=== PATIENT | female | born 1975 | race Caucasian/White ===

== ENCOUNTER 2016-12-22 14:30 | Inpatient (IN) | payer MEDICAID ==
[~2016-12-22] VITALS: Ht 157.5 cm; Wt 63.1 kg
--- NOTE | ~2016-12-22 | HP ---
PATIENT'S NAME: KAROLYN RODRIGUEZ [facility] AGE: 41 Y [address] ROOM: [address] [place], [place] [address] LOCATION: [facility] ADMIT DATE: 12/22/2016 History & Physical DISCHARGE DATE: FAMILY PHYSICIAN: PHYSICIAN, UNKNOWN ATTENDING PHYSICIAN: VIOLA WEAVER DATE OF SERVICE: HISTORY OF PRESENT ILLNESS: The patient is a 41-year-old G3, P2-0-0-2, who was transferred here from [place] secondary to the patient's concern for pre-term labor versus a possible infectious etiology. The patient's has been complicated by history of tobacco use and anemia, as well as a history of a LEEP and advanced maternal age. The patient states that she went to work this a.m., and then started complaining of nausea and vomiting and diarrhea. When she was seen in the office, she was complaining of some left lower quadrant pain, and was found to have tenderness on exam. Labs were obtained, and she was also noted to have a significantly elevated white count of 26. She was sent to the hospital for observation. While at the hospital, the patient was noted to have tachycardia in the 170s, with again elevation of her white blood cell counts. UA was unremarkable. Blood cultures were obtained. The patient did have a one-time fever of 100.4, but was otherwise afebrile. She was, however, receiving Tylenol for pain. The patient changed cervix from closed to fingertip, and was becoming further effaced. Discussion was held about transferring the patient here due to her premature status. Upon arrival here, the patient was reporting that she has continued to have contractions, though she feels are occurring closer together approximately every 2 minutes, and are becoming more painful. She does also note that her membranes ruptured, and the ambulance ride over from [place] was with pink-tinged fluid. She is still feeling positive movement. PAST MEDICAL HISTORY: Significant for tobacco use. Otherwise, denies any other issues. PAST SURGICAL HISTORY: Significant for a LEEP in 2002. Most recent Pap smear during this was normal. She has also had a breast lumpectomy of her left breast. OBSTETRICS/GYNECOLOGICAL HISTORY: Significant for two previous vaginal deliveries at term in [place]. She denies any complications with this . As stated above, this has been complicated by advanced maternal age, anemia, and tobacco use. She is 32 weeks and 5 days by her stated ROBERT of February 11, and she established care at approximately eight weeks in [place]. She has had normal ultrasounds during this consistent with those dates. PATIENT'S NAME: KAROLYN RODRIGUEZ [facility] AGE: 41 Y [address] ROOM: [place] [address] LOCATION: [facility] ADMIT DATE: 12/22/2016 History & Physical DISCHARGE DATE: FAMILY PHYSICIAN: PHYSICIAN, UNKNOWN ATTENDING PHYSICIAN: VIOLA WEAVER SOCIAL HISTORY: The patient endorses tobacco use, but denies any alcohol or drug use. She does have a history of narcotic abuse. She has not had a UDS during this , though reports she has been clean for some time. She is employed outside the home. She is currently from her . MEDICATIONS: She takes 1. vitamins. 2. Colace. 3. Prilosec. 4. Calcium and vitamin D. 5. Ferrous sulfate. ALLERGIES: SHE DOES NOT HAVE ANY KNOWN MEDICAL ALLERGIES. REVIEW OF SYSTEMS: Negative except as noted above. PHYSICAL EXAMINATION: VITAL SIGNS: Reviewed. The patient is afebrile and has a pulse of 92 and is normotensive. heart tones are approximately 165 baseline with moderate variability, and positive accels with variable decelerations. [place], the patient was amy approximately every two minutes. GENERAL: She appears awake and alert. She does appear to be uncomfortable with contractions. HEART: Regular rate and rhythm. LUNGS: Clear to auscultation bilaterally. ABDOMEN: Soft and gravid. She does have some tenderness worse over the left lower quadrant. She denies any fundal tenderness on exam. On speculum exam, she is grossly ruptured with clear fluid. On digital exam, cervix is fingertip, about 75% effaced, and -4. DIAGNOSTIC STUDIES: A bedside ultrasound was performed. Fetus was confirmed to be in a cephalic presentation, with very little amniotic fluid. EFW was obtained, which was 3 pounds 9 ounces, and measuring approximately 31 weeks, which was again consistent with dates. ASSESSMENT AND PLAN: This is a 41-year-old G3, P2-0-0-2 at 32 weeks and 5 days with premature rupture of membranes and concern for possible chorioamnionitis. 1. Intrauterine . status at this time was noted to have PATIENT'S NAME: KAROLYN RODRIGUEZ [facility] AGE: 41 Y [address] ROOM: [address] [address] LOCATION: [facility] ADMIT DATE: 12/22/2016 History & Physical DISCHARGE DATE: FAMILY PHYSICIAN: PHYSICIAN, UNKNOWN ATTENDING PHYSICIAN: VIOLA WEAVER consistent tachycardia, but does still have moderate variability and has occasional variable decelerations, but does not have any late or other concerning decelerations at this time. 2. premature rupture of membranes. Discussed with the patient that we will start latency antibiotics of ampicillin and a dose of azithromycin. I do not feel comfortable at this time starting tocolysis as I am concerned that she does have a possible infection due to the significant elevation in her white count and the persistent tachycardia. 3. Concern for possible chorioamnionitis as stated above. We will start antibiotics at this time. We will also obtain a procalcitonin and a repeat CBC and CMP, and also keep the patient on Tylenol 1 g q.6 hours for discomfort. Discussed with the patient that should she develop another fever or she should change her cervix, and at that time, we will talk about continued labor management and pain control, with possible augmentation of labor if further concerns for infection result. VIOLA WEAVER MD GT/talib /[id number] D: [id number] T: [id number] HISTORY & PHYSICAL
--- NOTE | ~2016-12-22 | DS ---
PATIENT'S NAME: KAROLYN RODRIGUEZ [facility] AGE: 41 Y [address] ROOM: [address] [address] LOCATION: [facility] ADMIT DATE: 12/22/2016 Discharge Summary DISCHARGE DATE: 12/25/2016 FAMILY PHYSICIAN: Physician, Unknown ATTENDING PHYSICIAN: Sari Cha ADMISSION DIAGNOSES: 1. Intrauterine at 32 weeks and 4 days. 2. Concern for chorioamnionitis. 3. Advanced maternal age. 4. Tobacco abuse. 5. Anemia. DISCHARGE DIAGNOSES: 1. Intrauterine at 32 weeks and 4 days. 2. Chorioamnionitis. 3. Repetitive late decelerations, unresponsive to resuscitative efforts. 4. Advanced maternal age. 5. Tobacco abuse. 6. Anemia. PROCEDURES PERFORMED DURING THIS HOSPITALIZATION: Primary low transverse section. COMPLICATIONS: The patient was transferred to the ICU following her procedure, secondary to hypotension, requiring pressors during her case. HOSPITAL COURSE: The patient is a 41-year-old, G3, P2-0-0-2, who was transferred from [place] on December 22, 2016 for left lower quadrant pain and elevated white count with concern for a possible chorioamnionitis versus labor. Upon arrival here, the patient was amy approximately every 2 to 3 minutes and was uncomfortable. Cervix is not favorable at that time. CBC at the outside facility had shown a white count in the low 20s, repeat CBC here showed a white count of 45, and she did have abdominal tenderness on exam. She was recommended to undergo induction, secondary to chorioamnionitis. The patient was afebrile. She was started on Pitocin and received an epidural. Shortly after epidural placement, she was noted to have repetitive late decelerations down to the 70s with the baseline of 160-170 for heart rate. These decelerations did not respond to resuscitative efforts and she was recommended to undergo section. The patient had also been given a dose of azithromycin and ampicillin for treatment of her chorioamnionitis prior to the procedure. Procedure in terms of delivery was uncomplicated and she had a viable female infant with score of 7 and 8 and weight of 3 pounds, 15 ounces. was transferred to NICU, secondary to prematurity. During the case, the patient did have a normal estimated PATIENT'S NAME: KAROLYN RODRIGUEZ [facility] AGE: 41 Y [address] ROOM: [address] [place], [place] [address] LOCATION: [facility] ADMIT DATE: 12/22/2016 Discharge Summary DISCHARGE DATE: 12/25/2016 FAMILY PHYSICIAN: Physician, Unknown ATTENDING PHYSICIAN: Sari Cha blood loss, but was requiring pressors for blood pressure support and was recommended to be transferred to the ICU. The patient did well overnight and did not require any further pressors and was continued on ampicillin, gentamicin, and clindamycin for antibiotic coverage. Repeat CBC the next a.m. showed a hemoglobin of 7.1, down from 9, which the patient was tolerating well and a white count of 42, slightly decreased from her previous of 46. She was transferred out of the ICU on December 23. On December 24, the patient continued to do well, white count was repeated and was 23, and hemoglobin was stable at 7.3. The patient was ambulating, tolerating p.o. intake, but had not passed flatus. She was given a suppository to help with this. She was complaining of some lower extremity edema, but was otherwise without complaint. The patient had also been started on Lovenox on the evening of postop day #1 for DVT prophylaxis due to her risk factors. The patient was given a Dulcolax suppository on postop day #2 and started passing flatus after that. On the morning of postop day #3, the patient was again meeting most postoperative goals, but was continuing to complain of edema in her legs up to her labia. She was given a dose of p.o. Lasix x1. Repeat CBC was obtained. She was felt to be stable to discharge to home. Of note, the patient does have a history of narcotic abuse and declines any narcotic pain medications to be discharged with and preferred to be on Tylenol for pain relief. I will discuss this further with Dr. Ambrose so that he is aware of her current situation. DISCHARGE PRECAUTIONS: The patient was instructed to call with fever greater than 100.4, uncontrolled pain, redness or drainage from her incision, and any heavy vaginal bleeding greater than 2 pads per hour. She is to follow up with me in 2 weeks for an incision check and with Dr. Ambrose in 6 weeks for her exam. DISCHARGE MEDICATIONS: Please see medication list. MD CATE MOHAN/talib /[id number] d: 12/26/16 0640 t: 12/31/16 1121, DISCHARGE SUMMARY
--- NOTE | ~2016-12-22 | OR ---
PATIENT'S NAME: KAROLYN RODRIGUEZ [facility] AGE: 41 Y [address] ROOM: [place] [address] LOCATION: [facility] ADMIT DATE: 12/22/2016 OR/Procedure Report DISCHARGE DATE: FAMILY PHYSICIAN: PHYSICIAN, UNKNOWN ATTENDING PHYSICIAN: SARI CHA SURGEON: Sari Cha MD NAPHTHALENE OPERATOR: Adore Adler MD. Dr. Adler's assistance was required for adequate visualization of the tissues as well as safe delivery of the fetus. DATE OF PROCEDURE: 12/22/2016 PROCEDURE PERFORMED: Primary low transverse section. PREOPERATIVE DIAGNOSES: 1. Intrauterine at 32 weeks, 4 days. 2. Chorioamnionitis. 3. Repetitive late decelerations, unresponsive to resuscitative efforts. 4. Advanced maternal age. 5. Tobacco use. 6. Anemia. POSTOPERATIVE DIAGNOSES: 1. Intrauterine at 32 weeks, 4 days. 2. Chorioamnionitis. 3. Repetitive late decelerations, unresponsive to resuscitative efforts. 4. Advanced maternal age. 5. Tobacco use. 6. Anemia. ESTIMATED BLOOD LOSS: 800 mL Antibiotics: azithromycin 500 mg and ampicillin 2 g IV prior to procedure. ANESTHESIA: Anesthesia was with epidural. FINDINGS: Viable female infant, Apgars 7/8, weight 3 lb 15 oz. Intact placenta with 3-vessel cord. Purulent foul-smelling fluid and decidual reaction consistent with intraamniotic infection. COMPLICATIONS: The patient was transferred to the ICU after the procedure, secondary to hypotension requiring the use of pressors. SPECIMENS: Placenta, cord blood, and arterial cord pH. INDICATION FOR THE PROCEDURE: The patient is a 41-year-old, G3, P2-0-0-2, who was transferred from [place] on December 22, 2016, secondary to labor with PAT[facility] AGE: 41 Y [address] ROOM: [place] [address] LOCATION: [facility] ADMIT DATE: 12/22/2016 OR/Procedure Report DISCHARGE DATE: FAMILY PHYSICIAN: PHYSICIAN, UNKNOWN ATTENDING PHYSICIAN: SARI CHA concern for chorioamnionitis. Please refer to my previously dictated H and P for admission details. Repeat CBC was obtained after the patient arrived here and white blood cell count was significantly elevated at 45. Due to concern for chorioamnionitis, she was recommended to undergo induction of labor and Pitocin was started. Cervix was fingertip dilated at that time. She then progressed to 1-2 cm dilated and desired her epidural. Vital signs were stable. heart tones remained in the 160s to 170s with moderate variability and occasional variable decelerations. The patient did receive her epidural and then shortly thereafter was noted to have repetitive late decelerations down to the 70s, which did not respond to resuscitative efforts. She was recommended to undergo section. She is aware of risks of procedure to include, but not limited to, risk of bleeding, risk of infection, risks associated with anesthesia, risk of injury to bowel and bladder, and risk of thromboembolism. She is aware of the risks and desired to proceed. DESCRIPTION OF PROCEDURE: The patient was taken back to the operating room and a Last catheter was placed. Epidural anesthesia had previously been established and was dosed up appropriately. She was placed in dorsal supine position with leftward tilt of the hips. She was prepped and draped in the usual sterile fashion. Due to the emergent nature of the case, a needle, sponge, instrument count was not performed prior to the procedure. An incision was made in the skin and carried down to the underlying fascia. Fascia was bluntly from the underlying rectus muscles. Blunt entry was made into the peritoneum and spread. Bladder blade was placed. A low- transverse hysterotomy incision was made and spread in a cephalocaudal direction. Upon entry into the uterus, a foul smell was appreciated. Surgeon's hand was placed into the uterus and with assistance of gentle fundal pressure, the head was delivered followed by the remainder of the body. No nuchal cord was noted. was noted to be a viable female. Cord was clamped and cut and the was handed off to the awaiting utility assembler and NICU team. Arterial cord pH and cord blood were obtained. Cord pH was 7.20 with a base excess of 11. IV Pitocin was started per protocol. Gentle traction was placed on the umbilical cord and the uterus was massaged until the placenta was released. The placenta was sent for pathology. Uterus was exteriorized and cleared of all remaining clots and debris. There was significant decidual reaction noted within the uterus. Uterus, tubes, and ovaries otherwise did appear normal. Left lower quadrant was examined as the patient was complaining of some pain in that area earlier in the day and there was no bowel abnormalities able to be appreciated. Uterus was then closed in a running locked fashion using 0 Vicryl. A second imbricating layer was placed in a running nonlocked fashion. The uterus was then replaced into the abdomen. Incision was inspected and an area of sinusoidal bleeding was appreciated on the left-side of the incision. Uterus was then exteriorized again and this area required multiple [id number] sutures, with 0 Vicryl. This area PATIENT'S NAME: KAROLYN RODRIGUEZ [facility] AGE: 41 Y [address] ROOM: [place] [address] LOCATION: [facility] ADMIT DATE: 12/22/2016 OR/Procedure Report DISCHARGE DATE: FAMILY PHYSICIAN: PHYSICIAN, UNKNOWN ATTENDING PHYSICIAN: SARI CHA was felt to be well medial to the uterine artery. Once bleeding was under control, the uterus was then replaced into the abdomen again and incision inspected and was hemostatic. The bilateral pericolic gutters were cleared of all clots. The fascia was then closed in a running nonlocked fashion using 0 Vicryl. Subcutaneous tissue was irrigated and any areas of bleeding cauterized with the Bovie. Skin was then closed with 4-0 Vicryl on a Andi needle. Mastisol and Steri-Strips were applied to the incision. An abdominal and pelvic x-ray was performed with no retained instruments or sponges appreciated. The patient at that time had required pressors to maintain her blood pressure and it was recommended that she be monitored within the ICU overnight. Plan was for the patient to continue on triple antibiotics with ampicillin, gentamicin, and clindamycin in concordance with further care from the ICU physician. MD CATE MOHAN/talib /[id number] d: 12/23/16311 t: 12/23/16911, OPERATIVE SUMMARY
[~2016-12-22 14:30] MED LIST changes: -COLACE100 MG PO; -FEOSOL325 MG PO; -FLONASE 50 MCG/16 GM NOSE; -PRENATAL 1+1)(P1 TAB PO; -PRILOSEC20 MG PO; -TYLENOL EXTRA500 MG PO
[2016-12-22 17:50] LABS: BILIRUBIN URINE NEGATIVE (NEGATIVE); BLOOD URINE 250 /UL (NEGATIVE); COLOR URINE YELLOW (YELLOW); GLUCOSE URINE NEGATIVE (NEGATIVE); KETONE URINE 50 mg/dL (NEGATIVE); LEUKOCYTES URINE 100 /UL (NEGATIVE); NITRITE URINE NEGATIVE (NEGATIVE); PROTEIN URINE 15 mg/dL (NEGATIVE); UROBILINOGEN URINE NORMAL (NORMAL)
[2016-12-22 17:57] LABS: TURBIDITY URINE 1+ (CLEAR)
[2016-12-22 17:58] LABS: RBC URINE NEGATIVE #/HPF (NEGATIVE)
[2016-12-22 17:59] LABS: BACTERIA URINE FEW (NEGATIVE)
[2016-12-22 18:07] LABS: BARBITURATE NEGATIVE (NEGATIVE); COCAINE NEGATIVE (NEGATIVE); OPIATES NEGATIVE (NEGATIVE)
[2016-12-22 18:14] LABS: AMPHETAMINE NEGATIVE (NEGATIVE)
[2016-12-22 18:14] LABS: HEMATOCRIT 28.3 % (33.0-46.0); HEMOGLOBIN 9.7 g/dL (11.0-15.0); MCH 31.1 pg (27.0-34.0); MCHC 34.3 gm/dL (32.0-36.5); MCV 90.7 fl (83.0-98.0); MPV 10.8 fl (9.4-12.4); PLATELET COUNT 196 K/uL (150-450); RBC 3.12 M/uL (3.50-5.50); RDW-CV 13.2 % (11.9-14.6)
[2016-12-22 18:16] LABS: WBC 46.1 K/uL (4.0-11.0)
[2016-12-22 18:30] LABS: ALBUMIN 2.6 gm/dL (3.5-5.0); ALK PHOS 86 IU/L (33-138); ALT 13 IU/L (12-78); ANION GAP 17.3 (10.0-19.0); AST 13 IU/L (10-40); BLOOD UREA NITROGEN 5 mg/dL (6-24); CHLORIDE 110 mMol/L (96-110); CREATININE 0.5 mg/dL (0.5-1.1); ESTIMATED GFR (MDRD EQUATION) > 60; POTASSIUM 3.3 mMol/L (3.7-5.1); SODIUM 141 mMol/L (135-145); TOTAL BILIRUBIN 0.9 mg/dL (0.0-1.5); TOTAL PROTEIN 5.8 g/dL (6.0-8.4)
[2016-12-22 18:31] LABS: CO2 17 mMol/L (22-32)
[2016-12-22 18:56] LABS: ABSOLUTE NEUTROPHIL CT (ANC) 43.8 K/uL (1.8-7.8); BANDED NEUTROPHIL # 19.4 K/uL (0.0-0.1); BANDED NEUTROPHILS % 42 %; LYMPHOCYTE # 1.4 K/uL (0.8-4.0); LYMPHOCYTE % 3 %; MONOCYTE # 1.4 K/uL (0.0-1.0); SEGMENTED NEUTROPHIL # 24.4 K/uL (1.8-7.8); SEGMENTED NEUTROPHIL % 53 %
[2016-12-22] MEDS ORDERED: PRENATAL 1+1)(P1 TAB PO (19:09)
[2016-12-22] MEDS ORDERED: COLACE100 MG PO (19:11)
[2016-12-22] MEDS ORDERED: FEOSOL325 MG PO (19:11)
[2016-12-22] MEDS ORDERED: PRILOSEC20 MG PO (19:12)
[2016-12-22] MEDS ORDERED: FLONASE 50 MCG/16 GM NOSE (19:13)
[2016-12-22 21:03] LABS: PCO2 41 mmHg (35-45)
[2016-12-22 21:05] LABS: PO2 18 mmHg (80-90)
[2016-12-22 21:06] LABS: BICARBONATE 16.6 mmol/L (18.0-23.0)
--- NOTE | 2016-12-23 02:51 | NUR ---
Significant Event: Patient is A/Ox3. VSS. SBP's 90's-120's. Maps greater than 65. o2 sats >94% on RA. Last to DD with adeq UOP. Fundus midline and firm. Small amount of lochia,rubra. Tylenol,toradol and dilaudid given for pain. Afebrile. Follow up:
[2016-12-23 05:38] LABS: MCV 91.6 fl (83.0-98.0); RDW-CV 13.2 % (11.9-14.6)
[2016-12-23 05:39] LABS: HEMATOCRIT 20.8 % (33.0-46.0); HEMOGLOBIN 7.1 g/dL (11.0-15.0); MCH 31.3 pg (27.0-34.0); MCHC 34.1 gm/dL (32.0-36.5); PLATELET COUNT 150 K/uL (150-450); RBC 2.27 M/uL (3.50-5.50); WBC 42.2 K/uL (4.0-11.0)
[2016-12-23 05:58] LABS: ANION GAP 13.5 (10.0-19.0); BLOOD UREA NITROGEN 7 mg/dL (6-24); CHLORIDE 111 mMol/L (96-110); CO2 20 mMol/L (22-32); CREATININE 0.4 mg/dL (0.5-1.1); ESTIMATED GFR (MDRD EQUATION) > 60; PHOSPHORUS 2.5 mg/dL (2.5-4.9); POTASSIUM 3.5 mMol/L (3.7-5.1); SODIUM 141 mMol/L (135-145)
[2016-12-23 06:01] LABS: MAGNESIUM 1.2 mg/dL (1.8-2.6)
[2016-12-23 06:06] LABS: ABSOLUTE NEUTROPHIL CT (ANC) 37.6 K/uL (1.8-7.8); BANDED NEUTROPHIL # 21.1 K/uL (0.0-0.1); BANDED NEUTROPHILS % 50 %; LYMPHOCYTE # 3.4 K/uL (0.8-4.0); LYMPHOCYTE % 8 %; SEGMENTED NEUTROPHIL # 16.5 K/uL (1.8-7.8); SEGMENTED NEUTROPHIL % 39 %
--- NOTE | 2016-12-23 11:43 | NUR ---
Significant Event: PT A&O x3. VSS, MAP 64-78, on room air. Microfoam dressing intact to lower abdomen. PIV x2, patent. PT ambulates with SBA. Last removed, void x2. Pain well controlled with tylenol and dilaudid. Follow up:
--- NOTE | 2016-12-23 18:57 | NUR ---
Last VS: T:98.1 P:87 R: 16 BP: 102/62 Pain ratin. Last pain med: Morphine IV Medicated at: 1741 Effective: Yes R Lung sounds: clear, L Lung sounds: clear Fundus: firm, one below, midline Lochia: small, rubra Breasts: soft, pumping Incision: microfoam dressing dry/intact Bowel sounds: hypo Passing flatus: no Voiding well: yes Significant event: Doing well, to NICU to see baby. Up to bathroom without difficulties. Ice on incision. has been afebrile since transfer back from ICU. Iv Ampicillin infusing every 6 hours. *.
--- NOTE | 2016-12-24 04:13 | NUR ---
vss, fundus firm, 1 finger below umbilicus, scant-small flow. pt showered last night and removed dressing. sutures and steri strips in place. pts pain has been hard to manage throughout the night. roxicodone seemed to help the most. 2mg of morphine given at 2255, roxicodone last given at 0145, 2 extra strength tylenol given at 0358. IV in left wrist clotted so was DC'd, then IV in right antecubital started leaking during the 0000 ampicillin so that IV was dc'd also. pt pumping and ambulates to NICU.
[2016-12-24 12:57] LABS: HEMATOCRIT 21.5 % (33.0-46.0); HEMOGLOBIN 7.3 g/dL (11.0-15.0); MCH 31.3 pg (27.0-34.0); MCV 92.3 fl (83.0-98.0); MPV 10.7 fl (9.4-12.4); PLATELET COUNT 232 K/uL (150-450); RBC 2.33 M/uL (3.50-5.50); RDW-CV 13.4 % (11.9-14.6); WBC 21.9 K/uL (4.0-11.0)
[2016-12-24 13:22] LABS: ABSOLUTE NEUTROPHIL CT (ANC) 20.2 K/uL (1.8-7.8); BANDED NEUTROPHIL # 7.2 K/uL (0.0-0.1); BANDED NEUTROPHILS % 33 %; LYMPHOCYTE # 1.5 K/uL (0.8-4.0); LYMPHOCYTE % 7 %; SEGMENTED NEUTROPHIL # 12.9 K/uL (1.8-7.8); SEGMENTED NEUTROPHIL % 59 %
--- NOTE | 2016-12-24 15:35 | NUR ---
Significant Event: Follow up: VSS, antibiotics d'cd, pitting edema from thighs down, ambulatesz to NICU frequently, pumping & taking milk to nicu. Medicated with Roxycodone 2) @ 1255. Gets Lovenox tonight, also syvadene ointment to skin tear R) side above incision, & on L) arm from tape.
--- NOTE | 2016-12-25 05:17 | NUR ---
VSS, fundus firm, midline, small flow, Roxicodone last at 0404, incision dry/intact
[2016-12-25] MEDS ORDERED: TYLENOL EXTRA500 MG PO (09:03)
[2016-12-25 09:07] LABS: HEMATOCRIT 20.8 % (33.0-46.0); MCH 30.7 pg (27.0-34.0); MCHC 33.7 gm/dL (32.0-36.5); MCV 91.2 fl (83.0-98.0); PLATELET COUNT 208 K/uL (150-450); RBC 2.28 M/uL (3.50-5.50); RDW-CV 13.2 % (11.9-14.6)
[2016-12-25 09:35] LABS: LYMPHOCYTE # 2.6 K/uL (0.8-4.0); LYMPHOCYTE % 16 %; MONOCYTE # 0.6 K/uL (0.0-1.0); SEGMENTED NEUTROPHIL # 11.2 K/uL (1.8-7.8); SEGMENTED NEUTROPHIL % 70 %
[2016-12-25 09:36] LABS: ABSOLUTE NEUTROPHIL CT (ANC) 12.3 K/uL (1.8-7.8); BANDED NEUTROPHIL # 1.1 K/uL (0.0-0.1); BANDED NEUTROPHILS % 7 %
--- NOTE | 2016-12-25 18:47 | NUR ---
Met with patient at bedside today. Introduced myself and explained my role with the CM department. I explained that I will continue to follow baby Shaka at the NICU once the patient discharges from the hospital. Informed patient that she needs to contact Medicaid and notify them of baby's . 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 I also reviewed signs and symptoms of post depression and gave her reading material on the subject. I encouraged her to contact her physician if she starts to experience any of the symptoms for more than 48 hours. 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 Informed her that she will not be able to drive for 2 weeks which she was not aware of. Plan is she will go home tonight as she has a 14 yr old daughter at home and then she will return tomorrow. I have a room reserved at the [facility] for her starting on 12/26 for two weeks. Gave her the information on the [facility] and let her know I will continue to follow while baby is here. Mom is already connected to the [facility] clinic and [facility] in [place].
== END 2016-12-25 15:40 | disposition disaster alternative care site (69) | DRG 765 ==
LOC: GOBS 14:30 → EDSTATUS 14:30 → GICU 16:12 → GOBS 16:12 → GICU 21:21 → GOBS 12-23 12:30
PROVIDERS: Anesthesiology Critical Care Medicine; ADMIT Obstetrics & Gynecology
PROC: 10D00Z1 Extraction of Products of Conception, Low, Open Approach (ICD-10-PCS; principal; 2016-12-22)
DX: O42.913 Preterm premature rupture of membranes, unspecified as to length of time between rupture and onset of labor, third trimester (principal); O41.1230 Chorioamnionitis, third trimester, not applicable or unspecified; R65.21 Severe sepsis with septic shock; O75.3 Other infection during labor; A41.9 Sepsis, unspecified organism; O60.14X0 Preterm labor third trimester with preterm delivery third trimester, not applicable or unspecified; Z37.0 Single live birth; Z3A.32 32 weeks gestation of pregnancy; O09.523 Supervision of elderly multigravida, third trimester; O99.334 Smoking (tobacco) complicating childbirth; F17.200 Nicotine dependence, unspecified, uncomplicated; O76 Abnormality in fetal heart rate and rhythm complicating labor and delivery; O99.02 Anemia complicating childbirth; D64.9 Anemia, unspecified
CPT/HCPCS: J0290; J1170; J1580; J1650; J1885; J2270; J2370; J2540; J2590; J3010; J7030; J7040; J7050; J7120

== ENCOUNTER → 2016-12-22 | Outpatient (CLI) | payer MEDICAID ==
[~2016-12-22] MED LIST: COLACE100 MG PO; FEOSOL325 MG PO; FLONASE 50 MCG/16 GM NOSE; PRENATAL 1+1)(P1 TAB PO; PRILOSEC20 MG PO; SEE COMMENTS; TYLENOL EXTRA500 MG PO
== END | disposition disaster alternative care site (69) ==
LOC: GAMB 14:42
DX: O33.1 Maternal care for disproportion due to generally contracted pelvis (principal); O99.89 Other specified diseases and conditions complicating pregnancy, childbirth and the puerperium; R10.9 Unspecified abdominal pain; R10.2 Pelvic and perineal pain; R11.10 Vomiting, unspecified; Z3A.32 32 weeks gestation of pregnancy
CPT/HCPCS: A0425; A0428